=== PATIENT | male | born 1960 | race Caucasian/White ===

== ENCOUNTER 2019-06-04 22:05 | Observation (INO) ==
[2019-06-04] MEDS ORDERED: Nitroglycerin 0.4 MG TAB.SUBL SL PRN (22:24)
[2019-06-04] MEDS ORDERED: Aspirin 81 MG TAB.CHEW PO ONE (22:24)
[2019-06-04] MEDS ORDERED: *HR* Ticagrelor 90 MG TABLET PO ONE (22:25)
[2019-06-04] MEDS ORDERED: *HR* Heparin 5,000 UNIT/ML VIAL IVP PRN ×2 (22:26)
[2019-06-04] MEDS ORDERED: *HR* Heparin 5,000 UNIT/ML VIAL IVP ONE (22:26)
[2019-06-04] MEDS ORDERED: Heparin 25,000 UNIT/250 ML D5W 25,000 UNIT/250 ML IV.SOLN IVC SCH (22:30)
[2019-06-04] MEDS ORDERED: 0.9 % Sodium Chloride 2,000 ML ONE (22:42)
[2019-06-04] MEDS ORDERED: Heparin 1,000 UNITS/500 mL 500 ML ONE (22:42)
[2019-06-04] MEDS ORDERED: ISOVUE-370 200 ML INFUS..BTL ONE (22:42)
[2019-06-04] MEDS ORDERED: Nitroglycerin 1,000 MCG/10 ML VIAL IV ONE (22:42)
[2019-06-04] MEDS ORDERED: *HR* Heparin 10,000 UNIT/10 ML VIAL ONE ×2 (22:42→22:50)
[2019-06-04] MEDS ORDERED: *HR* Midazolam HCl 2 MG/2 ML VIAL ONE (22:51)
[2019-06-04] MEDS ORDERED: *HR* FentaNYL (PF) 100 MCG/2 ML VIAL ONE (22:51)
[2019-06-04 22:57] LABS: Basophils % 0.3 %; Eosinophils # 0.2 K/mcL (0.0-0.6); Eosinophils % 2.2 %; Hematocrit 39.3 % (37.5-50.1); Immature Granulocytes % 1.1 % (0-4); Immature Platelets 2.6 % (1.1-6.1); Mean Corpuscular HGB Conc 33.1 g/dL (31.6-35.5); Mean Corpuscular Hemoglobin 32.1 pg (28.0-33.3); Mean Platelet Volume 9.8 fL (9.4-12.4); Monocytes # 0.6 K/mcL (0.0-1.3); Monocytes % 6.6 %; Neutrophils # 5.8 K/mcL (1.6-8.9); Platelet Count 195 K/mcL (140-400); Red Blood Count 4.05 M/mcL (4.19-5.50); Red Cell Distribution Width 13.2 % (11.5-14.5); Segmented Neutrophils % 66.8 %; White Blood Count 8.7 K/mcL (4.3-11.1)
[2019-06-04] MEDS ORDERED: Verapamil 5 MG/2 ML VIAL ONE (22:59)
[2019-06-04 23:06] LABS: INR 0.9; Prothrombin Time 10.4 Seconds (9.4-12.1)
[2019-06-04] MEDS ORDERED: *HR* Midazolam HCl 5 MG/5 ML VIAL IVP ONE (23:06)
[2019-06-04 23:09] LABS: Activated Partial Thrombo Time 25.9 Seconds (26.0-36.0)
[2019-06-04 23:57] LABS: BUN/Creatinine Ratio 29 (6-26); Blood Urea Nitrogen 28 mg/dL (6-20); Calcium 9.2 mg/dL (8.6-10.3); Carbon Dioxide 27 mEq/L (23-29); Chloride 105 mEq/L (98-107); Glucose 231 mg/dL (70-105); Magnesium 1.7 mg/dL (1.6-2.6); Osmolality,Calculated 301 (280-300); Potassium 3.9 mEq/L (3.5-5.1); Sodium 139 mEq/L (136-145); eGFR For African Americans > 60 (> 60); eGFR For Non-African Americans > 60 (> 60)
[2019-06-05 00:04] LABS: Troponin I < 0.03 ng/mL (< 0.04)
[2019-06-05 08:00] VITALS: BP 95/58
== END 2019-06-05 04:20 | disposition left against medical advice (07) ==
LOC: 2NENU 22:05 → EMEROOARM 22:05 → 2NENU 23:00
PROVIDERS: ADMIT Family Medicine; ATTEND Family Medicine